=== PATIENT | female | born 1995 ===

== ENCOUNTER 2016-12-01 08:41 | Emergency (ER) | payer SELFPAY ==
--- NOTE | 2016-12-01 09:24 | UC ---
Respiratory Complaint HPI - HPI Summary HPI Summary: 21 yo female with 2 day hx of runny nose and post nasal drip hx of PHONG and RAD has not used rescue inhaler no f/c no CERVANTES no myalgias - History of Current Complaint Chief Complaint: UCRespiratory Stated Complaint: COUGH CONGESTION Time Seen by Provider: 12/01/16 09:04 Hx Obtained From: Patient Hx Last Menstrual Period: 11/24/16 Onset/Duration: Sudden Onset, Lasting Days Timing: Constant Severity Initially: Mild Severity Currently: Moderate Pain Intensity: 2 - mild sore throat Pain Scale Used: 0-10 Numeric Character: Cough: Nonproductive Aggravating Factors: Nothing Alleviating Factors: OTC Meds - afrin Associated Signs And Symptoms: Positive: Nasal Congestion, Sinus Discomfort - slight. Negative: Hoarseness - Allergies/Home Medications Allergies/Adverse Reactions: Allergies Allergy/AdvReac Type Severity Reaction Status Date / Time No Known Allergies Allergy Verified 12/01/16 08:54 Home Medications: Home Medications Albuterol HFA INHALER* [Ventolin HFA Inhaler*] 2 puff INH Q4H PRN 12/01/16 [ History Confirmed 12/01/16] PMH/Surg Hx/FS Hx/Imm Hx Previously Healthy: Yes Cardiovascular History: Other Other Cardiovascular History: bicuspid aortic valve Respiratory History: Asthma - Surgical History Surgical History: None - Family History Known Family History: Positive: Hypertension, Respiratory Disease - Social History Alcohol Use: Weekly Substance Use Type: None Smoking Status (MU): Never Smoked Tobacco Review of Systems Constitutional: Negative Skin: Negative Eyes: Negative ENT: Nasal Discharge, Sinus Congestion Respiratory: Cough Cardiovascular: Negative Gastrointestinal: Negative Genitourinary: Negative Motor: Negative Neurovascular: Negative Musculoskeletal: Negative Neurological: Negative Psychological: Negative Is Patient Immunocompromised?: No All Other Systems Reviewed And Are Negative: Yes Physical Exam Triage Information Reviewed: Yes Appearance: Well-Appearing, No Pain Distress, Well-Nourished Vital Signs: Initial Vital Signs Temp 98.8 F 12/01/16 08:48 Pulse 72 12/01/16 08:48 Resp 12/01/16 08:48 BP 98/54 12/01/16 08:48 Pulse Ox 96 12/01/16 08:48 Vital Signs Reviewed: Yes Eyes: Positive: Conjunctiva Clear ENT: Positive: Hearing grossly normal, Nasal congestion, Nasal drainage, TMs normal. Negative: Tonsillar swelling, Tonsillar exudate, Trismus, Muffled/ hoarse voice Neck exam: Normal Neck: Positive: Supple, Nontender, No Lymphadenopathy Respiratory: Positive: Lungs clear, Normal breath sounds, No respiratory distress, No accessory muscle use Cardiovascular: Positive: RRR. Negative: No Murmur - CHELSEY Musculoskeletal: Positive: ROM Intact, No Edema Neurological: Positive: Alert Psychological: Positive: Normal Response To Family Skin Exam: Normal UC Diagnostic Evaluation - Laboratory O2 Sat by Pulse Oximetry: 96 - normal/not hypoxic Respiratory Course/Dx - Differential Dx/Diagnosis Provider Diagnoses: rhinnitis. suspect seasonal allergic rhinnitis Discharge - Discharge Plan Condition: Stable Disposition: HOME Patient Education Materials: Allergic Rhinitis (ED) Additional Instructions: I suspect your symptoms are due to allergies or a viral illness recheck for worsening symptoms recheck if you need to use your rescue inhaler start your flonase I suggest your also get ANDER (OTC) and take it daily recheck in about a week if not better
== END 2016-12-01 09:16 | disposition home or self-care (01) ==
LOC: UCEAST 08:41
DX: J31.0 Chronic rhinitis (principal)
CPT/HCPCS: 99201; G0463